=== PATIENT | female | born 1990 | race Caucasian/White ===

== ENCOUNTER 2016-09-26 16:22 | Emergency (ER) | payer OTHER ==
[~2016-09-26] VITALS: Ht 152.4 cm; Wt 49.0 kg
[2016-09-26 16:35] VITALS: Ht 152.4 cm; Wt 49.0 kg
[2016-09-26] MEDS ORDERED: FLUT16SP17 NASAL (18:11)
[2016-09-26] MEDS ORDERED: LORA10TA3 PO (18:11)
[2016-09-26] MEDS ORDERED: HYDR-842 PO (18:11)
--- NOTE | 2016-09-26 18:16 | ERD ---
ER Documentation Chief Complaint Date/Time DATE: 09/26/16 TIME: 18:13 Chief Complaint FEELING STRESSED AND ANXIOUS HPI 26-year-old female otherwise healthy presents emergency department with symptoms of trouble swallowing and trouble breathing intermittent for the past week. She states that she just started a new job and she has been correlated and excited about this, has not necessarily felt stressed or anxious. But she reports earlier to try to eat food and felt like her throat was closing. She reports that trying not to think about the symptoms, thinking positively and drinking water helps her symptoms. She has no trouble swallowing her secretions , opening closure of jaw, fevers or chills. She has not had any constitutional symptoms. Denies abdominal pain or chest pain. ROS All systems reviewed and are negative except as per history of present illness. Medications Home Meds Active Scripts Hydroxyzine Hcl* (Atarax*) 25 Mg Tab, 25 MG PO Q6H Y for ANXIETY, #30 TAB Prov:DANNY LYONS PA-C 09/26/16 Fluticasone Propionate* (Fluticasone Propionate* Nasal) 50 Mcg/[place] - 16 Gm [place].susp, 1 SPRAY NASAL BID, #1 BOTTLE TO EACH NOSTRIL Prov:DANNY LYONS PA-C 09/26/16 Loratadine* (Loratadine*) 10 Mg Tablet, 10 MG PO DAILY, #30 TAB Prov:DANNY LYONS PA-C 09/26/16 PMhx/Soc Medical and Surgical Hx: pt denies Medical Hx, pt denies Surgical Hx Hx Alcohol Use: No Hx Substance Use: No Hx Tobacco Use: No Physical Exam Vitals Vital Signs Date Time Temp Pulse Resp B/P Pulse Ox O2 Delivery O2 Flow Rate FiO2 09/26/16 16:35 98.4 74 18 109/61 98 Physical Exam General: Well-developed, well-nourished. The patient appears in no acute distress. Normal speech HEENT: Head is normocephalic, atraumatic. No scleral icterus. Pupils are equal , round, and reactive. Oral mucous membranes are moist. No pharyngeal erythema. Neck: Supple. Nontender. No thyroid megaly, no thyroid masses, no meningismus. No bruits Lungs: Clear to auscultation. Normal air movement. Heart: Regular rate and rhythm. S1 and S2 are normal. No murmurs, gallops, or rubs. Abdomen: Soft, nontender, nondistended. Bowel sounds are normoactive. Extremities: No clubbing or cyanosis. Normal pulses. Moving extremities x 4. No weakness. Neurologic: Alert and oriented 3. No focal deficits. Skin: Normal turgor. No rash or lesions. Procedures/MDM 26-year-old female presents with symptoms of "feeling like my throat was closing " associated with eating earlier this week. She has not had any trouble swallowing, voice changes, signs of infection, thyroid masses, bruits, or epiglottitis. Clinically she has normal examination, she is asymptomatic at this time. I suspect that this is likely due to a stress reaction. However I have advised that if she continues to have worsening dysphagia that she needs to follow-up with an ct scan special procedures technologist for an endoscopy. I have offered her an x-ray of soft tissue neck, which she feels comfortable at this time deferring to be followed up. She reports that she is trying to get insurance to become a [place] patient. I will be giving her a list of clinics for primary care follow-up in the meantime. She reports that she currently takes Benadryl for her seasonal allergies, she will be also discontinued this, start loratadine and fluticasone, will be given Atarax to be taken as needed for anxiety symptoms. Departure Diagnosis: Primary Impression: Anxiety Condition: Good Patient Instructions: Anxiety Reaction Referrals: [facility] YOU HAVE RECEIVED A MEDICAL SCREENING EXAM AND THE RESULTS INDICATE THAT YOU DO NOT HAVE A CONDITION THAT REQUIRES URGENT TREATMENT IN THE EMERGENCY DEPARTMENT. FURTHER EVALUATION AND TREATMENT OF YOUR CONDITION CAN WAIT UNTIL YOU ARE SEEN IN YOUR DOCTORS OFFICE WITHIN THE NEXT 1-2 DAYS. IT IS YOUR RESPONSIBILITY TO MAKE AN APPOINTMENT FOR FOL-UP CARE. IF YOU HAVE A PRIMARY DOCTOR --you should call your primary doctor and schedule an appointment IF YOU DO NOT HAVE A PRIMARY DOCTOR YOU CAN CALL OUR PHYSICIAN REFERRAL HOTLINE AT IF YOU CAN NOT AFFORD TO SEE A PHYSICIAN YOU CAN CHOSE FROM THE FOLLOWING [facility] [address] [facility] [address] [facility] [address] [facility] [address] [facility] [address] [facility]. [facility] [address] [facility] YOU HAVE RECEIVED A MEDICAL SCREENING EXAM AND THE RESULTS INDICATE THAT YOU DO NOT HAVE A CONDITION THAT REQUIRES URGENT TREATMENT IN THE EMERGENCY DEPARTMENT. FURTHER EVALUATION AND TREATMENT OF YOUR CONDITION CAN WAIT UNTIL YOU ARE SEEN IN YOUR DOCTORS OFFICE WITHIN THE NEXT 1-2 DAYS. IT IS YOUR RESPONSIBILITY TO MAKE AN APPOINTMENT FOR FOLOW-UP CARE. IF YOU HAVE A PRIMARY DOCTOR --you should call your primary doctor and schedule and appointment IF YOU DO NOT HAVE A PRIMARY DOCTOR YOU CAN CALL OUR PHYSICIAN REFERRAL HOTLINE AT . IF YOU CAN NOT AFFORD TO SEE A PHYSICIAN YOU CAN CHOSE FROM THE FOLLOWING [facility]: [facility] [address] [place] [address] [facility] [address] [place] [address] [facility] [address] [place] [address] [facility] Additional Instructions: Call your primary care doctor TOMORROW for an appointment during the next 1-2 days.See the doctor sooner or return here if your condition worsens before your appointment time. DANNY LYONS PA-C Sep 26, 2016 18:16
== END 2016-09-26 18:19 | disposition home or self-care (01) ==
LOC: FTE 16:22
DX: F41.9 Anxiety disorder, unspecified (principal)
CPT/HCPCS: 99283